=== PATIENT | female | born 1975 ===

== ENCOUNTER 2016-12-17 16:10 | Emergency (ER) | payer OTHER ==
[2016-12-17 16:10] VITALS: BMI 25.6
[2016-12-17 16:20] VITALS: BP 132/80; PULSE 85; RESP 20; TEMP 98.1; O2SAT 100
--- NOTE | 2016-12-17 16:30 | C.PDOC ---
History Of Present Illness 41 year old female presents to the ED for evaluation of bug bites to the arms and chest. As per patient, bed bugs were found in her office, the [employer] [facility] on [address] She began to feel itchy and was concerned due to the beg bug infestation. Charlene Harp, manager resort of the [employer], called to discuss that there was a bed bug outbreak yesterday and factory machine computer operator was called. Patient denies shortness of breath, lips swelling, or other complaints at this time. Time Seen by Provider: 12/17/16 16:22 Chief Complaint (Nursing): Abnormal Skin Integrity History Per: Patient History/Exam Limitations: no limitations Onset/Duration Of Symptoms: Hrs Current Symptoms Are (Timing): Still Present Quality Of Symptoms: Itching. denies: Draining Recent travel outside of the [place]: No Past Medical History Reviewed: Historical Data, Nursing Documentation, Vital Signs Vital Signs: Last Vital Signs Temp 98.1 F 12/17/16 16:16 Pulse 85 12/17/16 16:16 Resp 20 12/17/16 16:16 BP 132/80 12/17/16 16:16 Pulse Ox 100 12/17/16 18:34 - Medical History PMH: Back Problems - [facility] Procedures INJECT/INFUSE NEC (12/30/14) Family History: States: Unknown Family Hx - Social History Hx Alcohol Use: No Hx Substance Use: Yes (Marijuana) Review Of Systems Constitutional: Negative for: Fever, Chills Cardiovascular: Negative for: Chest Pain Respiratory: Negative for: Cough, Shortness of Breath Gastrointestinal: Negative for: Nausea, Vomiting Skin: Positive for: Other (diffuse bug bites on arms and chest) Physical Exam - Physical Exam Appears: Non-toxic, No Acute Distress Skin: Warm, Dry, Other (Scattered erythematus papules on right forearm, left arm , and chest) Head: Atraumatic Eye(s): bilateral: Normal Inspection, PERRL, EOMI Ear(s): Bilateral: Normal Oral Mucosa: Moist Throat: Normal, No Erythema, No Exudate Neck: Supple Chest: Symmetrical, No Deformity Cardiovascular: Rhythm Regular, No Murmur Respiratory: Normal Breath Sounds, No Rales, No Rhonchi, No Wheezing Neurological/Psych: Oriented x3, Normal Speech, Normal Cognition ED Course And Treatment O2 Sat by Pulse Oximetry: 100 (room air ) Progress Note: Patient was given Benadryl. Disposition Counseled Patient/Family Regarding: Diagnosis, Need For Followup - Disposition Disposition: HOME/ ROUTINE Disposition Time: 16:35 Condition: STABLE Additional Instructions: You may take Benadryl every 6 hours as needed for itching You may apply cortisone cream to affected area Please follow up with employee health Instructions: Insect Bite or Sting (ED) Forms: [employer] (Setswana) - POA Present On Arrival: None - Clinical Impression Clinical Impression: Insect bite - wound - Scribe Statement The provider has reviewed the documentation as recorded by the Scribe Carol Ann Gagnon All medical record entries made by the Kaylenibrita were at my direction and personally dictated by me. I have reviewed the chart and agree that the record accurately reflects my personal performance of the history, physical exam, medical decision making, and the department course for this patient. I have also personally directed, reviewed, and agree with the discharge instructions and disposition.
== END 2016-12-17 17:05 | disposition home or self-care (01) ==
LOC: C.ER 16:10
DX: S40.862A Insect bite (nonvenomous) of left upper arm, initial encounter (principal); S40.861A Insect bite (nonvenomous) of right upper arm, initial encounter; S20.369A Insect bite (nonvenomous) of unspecified front wall of thorax, initial encounter; W57.XXXA Bitten or stung by nonvenomous insect and other nonvenomous arthropods, initial encounter; Y93.89 Activity, other specified; Y92.59 Other trade areas as the place of occurrence of the external cause; Y99.0 Civilian activity done for income or pay